=== PATIENT | female | born 1970 | race Two or more races ===

== ENCOUNTER 2017-02-28 14:42 | Day surgery (SDC) | payer OTHER ==
[~2017-02-28] VITALS: Ht 167.6 cm; Wt 60.4 kg
[2017-02-28 15:20] VITALS: Ht 167.6 cm; Wt 60.4 kg
[2017-02-28] MEDS ORDERED: ASPI-664 PO (15:26)
[2017-02-28 15:38] VITALS: BP 118/74; PULSE 51; RESP 20
[2017-02-28 17:11] VITALS: BP 94/53; PULSE 53; RESP 18
[2017-02-28] MEDS ORDERED: MIDAZOLAM 1 MG/ML 2 ML INJ ONE ×2 (17:25)
[2017-02-28] MEDS ORDERED: FENTAnyl 50 MCG/ML VIAL ONE (17:26)
[2017-02-28 18:20] VITALS: BP 121/68; RESP 20
--- NOTE | 2017-02-28 18:38 | GILP ---
DATE OF PROCEDURE: 02/28/2017 NAME OF PROCEDURE: Colonoscopy. SURGEON: Amber Molina MD PREOPERATIVE DIAGNOSIS: Rectal bleeding. POSTOPERATIVE DIAGNOSES: 1. Colonoscopy all the way to the cecum. 2. Large internal hemorrhoids. INDICATION FOR THE PROCEDURE: Ms. Marta Lowery is a 46-year-old female patient who noticed a ch joshua in the bowel habit and rectal bleeding. The patient was scheduled for colonoscopy for further evaluation. The procedure and possible complications were well explained to the patient. The patient understood and consented to the procedure. DESCRIPTION OF PROCEDURE: Under the influence of fentanyl and Versed, the colonoscope was carefully introduced in the rectum and under direct vision, it was advanced all the way to the cecum. FINDINGS: The patient had large internal hemorrhoids. No colitis or neoplasm was identified. The patient tolerated the procedure very well and there was no complication from the procedure. At the end of the procedure, she was awake with stable vital signs and she was discharged home to the are of her family. IMPRESSION: 1. Colonoscopy all the way to the cecum. 2. Large internal hemorrhoids. 3. No colitis or neoplasm was identified. PLAN: 1. Anusol-HC 2.5% cream at bedtime. 2. If the bleeding continues, may consider hemorrhoidectomy. Dictated By: AMBER ALY/SHEREE Conf#: [id number] DID#: [id number] CC: AMBER MOLINA MD;*EndCC*
== END 2017-02-28 19:08 | disposition home or self-care (01) ==
LOC: GIL 14:42
PROVIDERS: ATTEND Internal Medicine Gastroenterology
DX: K64.8 Other hemorrhoids (principal)
CPT/HCPCS: 45378; 84702; J2250; J3010